=== PATIENT | female | born 1955 | race Caucasian/White ===

== ENCOUNTER 2017-06-23 15:16 | Emergency (ER) | payer MEDICARE, BC ==
[2017-06-23] MEDS ORDERED: Ketorolac Tromethamine 60 MG/2 ML VIAL ONE (18:02)
--- NOTE | 2017-06-23 20:53 | RAD ---
LEFT ANKLE THREE VIEWS: 06/23/17 HISTORY: Pain. Symptoms x2 weeks. COMPARISON: 02/02/14. FINDINGS: Healing of previously noted medial malleolus and distal fibular fracture. Currently no fractures. Ank le mortise is intact and the joint space is preserved. Nonspecific soft tissue swelling. IMPRESSION: 1. Healed fractures. 2. Nonspecific soft tissue swelling. POS: [facility]
--- NOTE | 2017-06-23 20:55 | RAD ---
LUMBAR SPINE THREE VIEWS 06/23/17 HISTORY: Back surgery 5-6 years ago. Lumbar spine pain. COMPARISON: None. FINDINGS: Grade I anterolisthesis of L4 upon L5. The lumbar spine vertebral body height is maintained. No fract ures. No significant loss of disc space height. Note, there are five lumbar type vertebral bodies. IMPRESSION: Grade I anterolisthesis of L4 upon L5. POS: [facility]
== END 2017-06-23 19:09 | disposition home or self-care (01) ==
LOC: ERS 15:16
DX: M54.42 Lumbago with sciatica, left side (principal); E78.5 Hyperlipidemia, unspecified; I10 Essential (primary) hypertension; F41.9 Anxiety disorder, unspecified; F32.9 Major depressive disorder, single episode, unspecified; Z79.891 Long term (current) use of opiate analgesic; Z79.899 Other long term (current) drug therapy
CPT/HCPCS: 72100; 96372; J1885

== ENCOUNTER 2017-08-17 11:28 | Outpatient (CLI) | payer MEDICARE, BC | END 2017-08-17 11:29 | disposition home or self-care (01) | LOC: BICMAMMO 11:28 | PROVIDERS: ATTEND Physician Assistant | DX: Z12.31 Encounter for screening mammogram for malignant neoplasm of breast (principal) | CPT/HCPCS: 77063; 77067 ==

== ENCOUNTER 2017-09-07 08:07 | Day surgery (SDC) | payer MEDICARE, BC ==
[2017-09-04 09:53] VITALS: BMI 39.9
--- NOTE | 2017-09-06 20:23 | HP ---
HISTORY OF PRESENT ILLNESS: Ms. Engle is a 62-year-old woman who presents for evaluation of 6 mon ths' worth of severe left lower extremity L4 pains as well as chronic back pain. She has an MRI on d isk from [facility] revealing foraminal disk herniation at L4 on the left hand side, which matches her symptoms well. There is also a grade 1 slip that is mild in nature at L4-L5 which is stable on f lexion and extension view. She has had an epidural steroid injection with Dr. Swann, which did yield relief, but she is more interested in fixing this definitively. PAST MEDICAL HISTORY: Significant for gallstones and prior back pain issues. CURRENT MEDICATIONS: Hydrocodone, diazepam, Lyrica, duloxetine, potassium, atorvastatin, amlodipine, lansoprazole. ALLERGIES: AZELASTINE nasal spray. PAST SURGICAL HISTORY: Cholecystectomy, hysterectomy, and an unspecified back surgery. PHYSICAL EXAMINATION: NEUROLOGIC: Patient is alert and oriented x3. Gait is antalgic. Left lower extremities straight le g raise is positive. Right is negative. Lower extremity motor exam is normal. ASSESSMENT: Lumbar disk herniation with radiculopathy. PLAN: Dr. Brown met with the patient, reviewed imaging and advocated for left L4 diskectomy and fora minotomy. He explained to the patient the risks, benefits, and alternatives of the procedure. The p atient expressed understanding and would like to move forward with surgery as discussed. I do believ e the patient is mentally competent and capable of making medical decisions for herself. We will mov e forward with surgery as planned. Ho Hernandez PA-C dictating for Dr. Brown.
[2017-09-07] MEDS ORDERED: CEFAZOLIN/Water 2 GM/20 ML SYRINGE ONE ×2 (09:05→16:24)
[2017-09-07] MEDS ORDERED: Bupivacaine HCl 0.5%/Epinephrine 1:200,000/PF 30 ml Vial ONE (11:29)
[2017-09-07] MEDS ORDERED: Midazolam HCl 2 mg/2 ml Vial ONE (11:35)
[2017-09-07] MEDS ORDERED: Fentanyl 250 MCG/5 ML VIAL ONE ×2 (11:35→13:24)
--- NOTE | 2017-09-07 13:15 | OP ---
DATE OF PROCEDURE: 09/07/2017 SURGEON: Rakesh Brown M.D. ICE CREAM SERVER: Ho Hernandez PA-C INDICATION: Pain. DIAGNOSIS: Left L4 radiculopathy. PROCEDURES: Left L4 diskectomy, left L4 foraminotomy, decompression. ANESTHESIA: General. TECHNIQUE: The patient was brought into the operating room and placed under general anesthesia. She was flipped from a supine to a prone position on the operating room table. An old linear incision w as identified and prepped and draped in the usual sterile fashion. Following an appropriate operativ e pause, the incision was created. Soft tissues were swept left of midline. A C-arm image was obtai javier to confirm the left L4 segment. After obtaining the appropriate level, high-speed cutting drill bit as well as 2, 3 and 4 mm Kerrisons used to perform a laminectomy along the remaining portion of L 4 on the left. A foraminotomy was performed of the exiting L4 nerve root. Disk and scar material we re found within the lateral recess and the foramen of L4. These were carefully removed in order to d ecompress the exiting L4 nerve root. The wound was then irrigated. Hemostasis was maintained throug hout. The wound was then closed in anatomic layers and a pressure dressing was applied. There were no known procedural complications.
[2017-09-07] MEDS ORDERED: Dexamethasone 20 MG/5 ML VIAL ONE (14:43)
[2017-09-07] MEDS ORDERED: Glycopyrrolate 0.2 MG/ML 5 ML SYRINGE ONE (14:43)
[2017-09-07] MEDS ORDERED: Propofol 200 MG/20 ML VIAL ONE (14:43)
[2017-09-07] MEDS ORDERED: Lidocaine 1% PF 5 ML VIAL ONE (14:43)
[2017-09-07] MEDS ORDERED: Naloxone HCl 0.4 mg/ml Vial ONE (14:43)
[2017-09-07] MEDS ORDERED: Ondansetron HCl/PF 4 MG/2 ML Vial ONE (14:43)
--- NOTE | 2017-09-07 20:05 | EKG ---
Test Reason : PREOP Blood Pressure : / mmHG Vent. Rate : 074 BPM Atrial Rate : 074 BPM P-R Int : 136 ms QRS Dur : 082 ms QT Int : 400 ms P-R-T Axes : 067 045 062 degrees QTc Int : 444 ms Normal sinus rhythm Normal ECG When compared with ECG of 09-JUL-2011 09:06, No significant change was found Confirmed by ALDO LEMA, DR. Butler ([id number]) on 09/07/2017 8:04:56 PM Referred By: LUDMILA Confirmed By:DR. Luke CARLSON MD
== END 2017-09-07 17:01 | disposition home or self-care (01) ==
LOC: SDC 08:07
PROVIDERS: ATTEND Neurological Surgery
PROC: 0ST20ZZ Resection of Lumbar Vertebral Disc, Open Approach (ICD-10-PCS; principal; 2017-09-07)
PROC: 01NB0ZZ Release Lumbar Nerve, Open Approach (ICD-10-PCS; 2017-09-07)
DX: M54.16 Radiculopathy, lumbar region (principal); M54.9 Dorsalgia, unspecified; G89.29 Other chronic pain; R53.82 Chronic fatigue, unspecified; F32.9 Major depressive disorder, single episode, unspecified; Z79.890 Hormone replacement therapy; Z79.899 Other long term (current) drug therapy; Z88.8 Allergy status to other drugs, medicaments and biological substances; Z98.890 Other specified postprocedural states
CPT/HCPCS: 76001; 93005; 93010; 96374; J0670; J1100; J2001; J2250; J2310; J2405; J2704; J3010

== ENCOUNTER 2017-12-09 06:23 | Day surgery (SDC) | payer MEDICARE, BC ==
[2017-12-08 10:07] VITALS: BMI 39.9
--- NOTE | 2017-12-09 04:02 | HP ---
SHORT STAY HISTORY AND PHYSICAL DATE OF ADMISSION: 12/09/2017 HISTORY OF PRESENT ILLNESS: Ms. Mitzy Engle is a very pleasant 62-year- old female seen by me a month ago at [facility]. She has also abdominal pain, nausea, and vomiting and was found to have evidence of pancreatitis. Also, her liver function is elevated. The patient has had previous open cholecystectomy many years ago. It was felt that patient most likely has common bile duct stone . The patient advised to come back for ERCP after she gets over the pancreatitis. ALLERGIES: None. SOCIAL HISTORY: The patient does not smoke or drink alcohol. MEDICAL ILLNESSES: 1. Hypertension. 2. Hyperlipidemia. 3. Depression and anxiety. 4. Cholecystectomy. PHYSICAL EXAMINATION: VITAL SIGNS: Pulse is 70, blood pressure 140/70. HEENT: Conjunctivae clear. CARDIOVASCULAR SYSTEM: First and second heart sounds normal. LUNGS: Clear to auscultation. ABDOMEN: Soft to palpate. No organomegaly. No tenderness. No masses. ADMITTING DIAGNOSIS: A 62-year-old female with gallstone pancreatitis a month ago. She had elevated LFTs at that time. She also has had a previous cholecystectomy. The patient appears to have a common bile duct stone. The patient comes for ERCP. The patient was explained about the ERCP procedure in detail, and explained about the risks about pancreatitis, bleeding , perforation, sepsis, etc. The patient understood the risks involved and is agreeable for the ERCP. HECTOR
[2017-12-09] MEDS ORDERED: Indomethacin 50 MG SUPP ONE (07:19)
[2017-12-09] MEDS ORDERED: Iothalamate Meglumine 60% 50 ML VIAL FS ONE (07:19)
[2017-12-09] MEDS ORDERED: Fentanyl 100 MCG/2 ML VIAL ONE ×2 (08:35→10:15)
[2017-12-09] MEDS ORDERED: Ondansetron HCl/PF 4 MG/2 ML Vial IVP PRN (10:15)
[2017-12-09] MEDS ORDERED: Promethazine HCl 25 MG/ML VIAL IM/IV PRN (10:15)
[2017-12-09] MEDS ORDERED: Non-Formulary Medication 1 EACH PO PRN (10:15)
[2017-12-09] MEDS ORDERED: HYDROcodone/Acetaminophen 5/325 mg Tablet ONE ×2 (11:15)
[2017-12-09] MEDS ORDERED: Ondansetron HCl/PF 4 MG/2 ML Vial ONE (11:15)
--- NOTE | 2017-12-09 11:24 | RAD ---
FLUOROSCOPIC IMAGING DURING ERCP: 12/09/2017 HISTORY: Abdominal pain. COMPARISON: None. FINDINGS: Five images are provided from an ERCP performed by Dr. Burks. The initial image demonstrates an endoscope in place. A wire extends into the CBD. The common bile duct is dilated on image 1 and benito ge 2. The distal aspect of the CBD, extending into the region of the ampulla of Vater, is not opacif ied on either one of these images and, thus, incompletely assessed. Similar findings are seen on benito ge 3. Image 4 demonstrates a balloon inflated in the distal CBD. The distal CBD is never well seen on this examination and, thus, a mass lesion, stricture, or stone in this region cannot be excluded. IMPRESSION: Common bile duct appears dilated. Distal common bile duct is never well assessed. One of the images demonstrates a balloon inflated in the distal common bile duct. POS: [facility]
--- NOTE | 2017-12-10 09:12 | OP ---
DATE OF SURGERY: 12/09/2017 OPERATIVE PROCEDURE: 1. ERCP. 2. ERCP with papillotomy. 3. ERCP with balloon sweep of the bile duct with a 9 mm biliary balloon. 4. ERCP with a 10 x 7 cm sized bile duct stent placement. PREOPERATIVE DIAGNOSES: Gallstone pancreatitis, abdominal pain. POSTOPERATIVE DIAGNOSES: 1. No definite filling defect seen. 2. Mildly dilated CBD. 3. The distal common bile duct appears to be slightly narrowed and the bile duct not emptying very w ell. PROCEDURE NOTE: The patient was intubated and was given sedation by Anesthesia Department. The ying ent was transferred from the stretcher to the fluoroscopy table. She was initially placed in left la teral position and turned on her stomach. A bite block was placed. A Artoo video duodenoscope unde r direct vision was passed down the oropharynx, past the GE junction, into the stomach, and subsequen tly the descending duodenum. The papilla was identified. I do not see any bile draining at the devin lla. A papillotome was used to cannulate the bile duct selectively over a guidewire. Upon injection of contrast, there was no definite filling defect seen. The duct was selectively dilated. The gall stone was removed. However, during fluoroscopy, the duct is really not emptying. The very distal co mmon bile duct appears to be slightly narrowed. I could not really get the contrast filled completel y. So, likely a papillotomy at 12 o'clock position. This was achieved over a guidewire after . Following the papillotomy, there was bile drainage noted; however, the duct was not emptying very w ell. Because of above reason, papillotome was changed to biliary balloon sized 9 mm. The balloon wa s brought out very easily across the papillotomy site. As the duct was not emptying very well, it wa s elected to place a bile duct stent at 10 x 7 cm into bile duct. After the bile duct stent was plac ed, a good biliary drainage noticed with the stent. The stomach was decompressed and the scope was r emoved. DISCHARGE PLANNING: A 62-year-old female with a recent gallstone pancreatitis, hospitalize d a month ago. At that time, her liver function tests were elevated. She has had previous cholecyst ectomy more than 15 years ago. She underwent ERCP with papillotomy and balloon sweep followed by a b ile duct stent placement 10 x 7 cm. The patient will be brought back in 4 weeks to remove the stent.
== END 2017-12-09 12:15 | disposition home or self-care (01) ==
LOC: SDC 06:23
PROVIDERS: ATTEND Internal Medicine Gastroenterology
PROC: 0F798DZ Dilation of Common Bile Duct with Intraluminal Device, Via Natural or Artificial Opening Endoscopic (ICD-10-PCS; principal; 2017-12-09)
DX: K83.8 Other specified diseases of biliary tract (principal); I10 Essential (primary) hypertension; E78.5 Hyperlipidemia, unspecified; F32.9 Major depressive disorder, single episode, unspecified; F41.9 Anxiety disorder, unspecified; Z90.49 Acquired absence of other specified parts of digestive tract
CPT/HCPCS: 74330; 96374; J1610; J2405; J3010; Q9961

== ENCOUNTER 2018-01-15 06:09 | Day surgery (SDC) | payer MEDICARE, BC ==
[2018-01-14 09:10] VITALS: BMI 39.9
[2018-01-15] MEDS ORDERED: Fentanyl 100 MCG/2 ML VIAL ONE (07:06)
[2018-01-15] MEDS ORDERED: Iothalamate Meglumine 60% 50 ML VIAL FS ONE (07:14)
[2018-01-15] MEDS ORDERED: Levofloxacin 500 mg/D5W 100 ml Premix Bag ONE (07:31)
--- NOTE | 2018-01-15 09:01 | HP ---
SHORT STAY HISTORY AND PHYSICAL DATE OF ADMISSION: 01/15/2018 HISTORY OF PRESENT ILLNESS: Ms. Mitzy Engle is a very pleasant 62-year-old female wit h a recent gallstone pancreatitis. The patient underwent ERCP with papillotomy and stent placement d one approximately more than a month ago. The patient has done well since the stent placement. She d id have a brief spell of post-ERCP pancreatitis. The patient comes in for ERCP with stent removal to day. ALLERGIES: None. MEDICAL ILLNESSES: 1. Hypertension. 2. Hyperlipidemia. 3. Chronic acid reflux. 4. Chronic back pain. 5. Depression and anxiety. 6. Allergic rhinitis. SOCIAL HISTORY: The patient does not smoke or drink alcohol. PHYSICAL EXAMINATION: VITAL SIGNS: Pulse is 70, blood pressure 130/80. HEENT: Conjunctivae clear. CARDIOVASCULAR SYSTEM: First and second heart sounds normal. LUNGS: Clear to auscultation. ABDOMEN: Soft to palpate. No organomegaly. No tenderness. No masses. ADMITTING DIAGNOSIS: This is a 62-year-old female with status post ERCP, papillotomy and s tent placement more than a month ago. The patient comes in for ERCP with stent removal today.
[2018-01-15] MEDS ORDERED: Ondansetron HCl/PF 4 MG/2 ML Vial ONE (09:19)
[2018-01-15] MEDS ORDERED: Promethazine HCl 25 MG/ML VIAL ONE (09:29)
--- NOTE | 2018-01-15 11:07 | RAD ---
ERCP: Date: 01-15-18 History: Gallbladder calculi. Two intraoperative fluoroscopic images from ERCP are submitted for interpretation. Comparison: 12-09-17 FINDINGS: Images demonstrate guidewire in place within the common duct. The common duct is dilated. Mild dilata tion of the visualized intrahepatic ducts. Surgical clips are seen in the right upper quadrant relate d to prior cholecystectomy. Distal common duct is not well evaluated, although on the provided images , question of filling defect in the distal common duct. However, correlation with intraoperative find ings recommended to exclude the possibility of a calculus within the common duct. No images demonstra ting free fill of contrast into the duodenum are provided. Dilatation of the common duct was also not ed on prior exam. IMPRESSION: 1. Dilated common duct. Distal common duct is not well assessed on provided images. One of the provid ed images questions filling defect in the distal common duct, and distal common duct calculus cannot be excluded based on this exam. Correlation with intraoperative findings is recommended. POS: [facility]
--- NOTE | 2018-01-15 18:09 | OP ---
DATE OF PROCEDURE: 01/15/2018 OPERATIVE PROCEDURES: 1. Endoscopic retrograde cholangiopancreatography with removal of bile duct stent. 2. Balloon sweep of the common bile duct with extraction of a large amount of debris and multiple small pigmented stones. PROCEDURE IN DETAIL: The patient was intubated and was given sedation by Anesthesia Department. The patient was transferred from the stretcher to the fluoroscopy table and placed in left lateral position and turned on the stomach. The bite block was placed and Pentax video duodenoscope under direct vision was passed down the oropharynx, past the GE junction, the stomach and subsequently into descending duodenum. The papilla was identified. The previously placed bile duct stent removed with polypectomy snare. The scope and stent removed. The patient rescoped again and advanced back into the descending duodenum. The papilla was cannulated into the pancreatic duct and injection shows normal pancreatic duct. Subsequently, the CBD selectively cannulated: This was achieved with a guidewire. Upon injection of contrast, there were no definite filling defects seen, but does show dilation of the common bile duct. Once the cannula was achieved, the patient started passing a small amount of debris and multiple tiny pigmented stone. The papillotome was exchanged to a biliary balloon. The balloon was inflated and an occlusion cholangiogram was performed. There is no filling defect seen. The balloon was brought across the papilla x2 with emptying of common bile duct. The stomach was decompressed and scoped. DISCHARGE PLANNING: This is a 62-year-old female with recent pancreatitis, underwent ERCP and stent placement done about 5 weeks ago. The patient came in for stent removal. She underwent a dual stent and also had a cholangiogram. The cholangiogram shows no filling defect, but however, upon cannulation, the patient started passing_ moderate amount of debris and multiple small pigmented stones. Occlusion cholangiogram showed no filling defects. The patient did well post procedure and is being discharged home. DISCHARGE INSTRUCTIONS: 1. The patient was advised to call me for abdominal pain, nausea, vomiting. 2. In the absence of any of her symptoms, will come back to me next week. [facility]
== END 2018-01-15 10:58 | disposition home or self-care (01) ==
LOC: SDC 06:09
PROVIDERS: ATTEND Internal Medicine Gastroenterology
PROC: 0FPB8DZ Removal of Intraluminal Device from Hepatobiliary Duct, Via Natural or Artificial Opening Endoscopic (ICD-10-PCS; principal; 2018-01-15)
PROC: 0FC98ZZ Extirpation of Matter from Common Bile Duct, Via Natural or Artificial Opening Endoscopic (ICD-10-PCS; 2018-01-15)
DX: K80.50 Calculus of bile duct without cholangitis or cholecystitis without obstruction (principal); E78.5 Hyperlipidemia, unspecified; G89.29 Other chronic pain; M54.9 Dorsalgia, unspecified; F41.8 Other specified anxiety disorders; K21.9 Gastro-esophageal reflux disease without esophagitis; I10 Essential (primary) hypertension; Z98.890 Other specified postprocedural states; Z79.899 Other long term (current) drug therapy
CPT/HCPCS: 74330; 96374; J1956; J2405; J2550; J3010; Q9961

== ENCOUNTER 2018-01-15 16:21 | Inpatient (IN) | payer MEDICARE, BC ==
[~2018-01-15 16:21] MED LIST: ISOVUE-370 76%-LOCM 1 ML ONE
[2018-01-15 17:37] LABS: Hemoglobin 14.3 g/dL (12.0-16.0); Mean Corpuscular HGB CONC 33.5 g/dL (32.0-36.0); Mean Corpuscular Hemoglobin 27.6 pg (27.0-31.0); Mean Corpuscular Volume 82.4 fL (78.0-98.0); Mean Platelet Volume 12.4 fL (7.4-10.4); Platelet Count 104 thou/uL (130-400); RBC Distribution Width 13.5 % (11.5-14.5); Red Blood Cell (RBC) Count 5.17 mill/uL (4.20-5.40); White Blood Cell (WBC) Count 11.5 thou/uL (4.8-10.8)
[2018-01-15 17:43] LABS: Band 11 % (5-11); Large Platelets SLIGHT; Lymphocytes 8 % (21-51); MDiff Complete? YES; Monocytes 4 % (0-10); Neutrophil 75 % (42-75); PLT Morphology Comment Appears Decreased; RBC Morphology Normal; Reactive Lymphocytes 1 % (0-10); Vacuoles SLIGHT
[2018-01-15 17:48] LABS: ALT (SGPT) 19 U/L (8-55); AST (SGOT) 31 U/L (5-34); Albumin 4.2 g/dL (3.4-4.8); Alkaline Phosphatase 141 U/L (40-150); Anion Gap 16 mmol/L (10-20); BUN (Urea Nitrogen) 15 mg/dL (9.8-20.1); Bilirubin, Total 0.7 mg/dL (0.2-1.2); Calc. Creatinine Clearance 0 mL/min (70-130); Calcium 9.3 mg/dL (7.8-10.44); Carbon Dioxide 22 mmol/L (23-31); Chloride 106 mmol/L (98-107); Estimated GFR-MDRD 55; Globulin 2.9 g/dL (2.4-3.5); Glucose 128 mg/dL (80-115); Potassium 4.2 mmol/L (3.5-5.1); Protein, Total 7.1 g/dL (6.0-8.3); Sodium 140 mmol/L (136-145)
[2018-01-15] MEDS ORDERED: Ondansetron HCl/PF 4 MG/2 ML Vial ONE (20:58)
[2018-01-15] MEDS ORDERED: Acetaminophen 500 MG TAB ONE (21:07)
--- NOTE | 2018-01-15 22:34 | CT ---
CT OF ABDOMEN AND PELVIS PERFORMED WITH CONTRAST ENHANCEMENT: 01/15/18 HISTORY: Patient is status post bile duct stent removal. A stent the patient reports she had for six weeks. James nuñez has had abdominal pain. COMPARISON: ERCP examination done today. Lung bases show subsegmental atelectasis. There is a moderate sized hiatal hernia present. The liver and spleen appear unremarkable. The gallbladder has been removed. There is peripancreatic inflammator y change and small amount of fluid more pronounced around the pancreatic head region. There is also s ome edema change near the second to third portion of the duodenum. Extrahepatic bile ducts show some wall enhancement. I do not see a definite ductal calculus. There is no intrahepatic ductal dilation. Right and left adrenal glands are normal in appearance. Right and left kidneys are normal in size. Hy podensities involving the left kidney are compatible with cysts. There is no significant periaortic or mesenteric adenopathy. CT OF PELVIS PERFORMED WITH CONTRAST ENHANCEMENT: The appendix is normal. No adenopathy, mass or free fluid. IMPRESSION: 1. Peripancreatic inflammatory change compatible with pancreatitis. 2. Postop cholecystectomy change. 3. Hiatal hernia. POS: [facility]
[2018-01-16] MEDS ORDERED: Fentanyl 100 MCG/2 ML VIAL ONE (00:16)
[2018-01-16] MEDS ORDERED: HYDROcodone/Acetaminophen 5/325 mg Tablet ONE (02:27)
[2018-01-16] MEDS ORDERED: Acetaminophen 325 MG TAB PO PRN (03:41)
[2018-01-16] MEDS ORDERED: Mag-Al 1200 mg/1200 mg/30 ML UDCUP PO PRN (03:41)
[2018-01-16] MEDS ORDERED: Calcium Carbonate 500 MG ChewTAB PO PRN (03:41)
[2018-01-16] MEDS ORDERED: hydrALAZINE 20 MG/ML VIAL SLOW IVP PRN (03:41)
[2018-01-16] MEDS ORDERED: Nitroglycerin 0.4 MG TAB (25 Tab Bottle) SL PRN (03:41)
[2018-01-16] MEDS ORDERED: Ondansetron HCl/PF 4 MG/2 ML Vial IVP PRN ×2 (03:41→03:49)
[2018-01-16] MEDS ORDERED: HYDROcodone/Acetaminophen 5/325 mg Tablet PO PRN ×2 (03:49)
[2018-01-16] MEDS ORDERED: Ondansetron ODT 4 MG TAB SL PRN (03:49)
[2018-01-16] MEDS ORDERED: Sodium Chloride 0.45% 1,000 ML IV SCH (03:49)
[2018-01-16] MEDS ORDERED: Fentanyl 100 MCG/2 ML VIAL SLOW IVP PRN ×2 (03:51→17:30)
[2018-01-16 04:10] VITALS: BMI 39.8
[2018-01-16] MEDS: Sodium Chloride 0.9% 1,000 ML IV SCH ×5 (04:33→22:08)
--- NOTE | 2018-01-16 05:06 | HP ---
DATE OF ADMISSION: 01/16/2018 PRIMARY CARE PHYSICIAN: Amber Hoover. CHIEF COMPLAINT: Abdominal pain, vomiting, and loose stools. HISTORY OF PRESENT ILLNESS: Ms. Engle is a pleasant 62-year-old female with recent diagnosis of g allstone pancreatitis, who presented to the ER with above-mentioned complaint. History is mainly obt ained with the patient herself and case has been discussed with the admitting ER physician, Dr. Mirta howard. Electronic medical records have been reviewed. The patient had an episode of pancreatitis in 11/2017, at which time she was seen at [facility]. She was seen by Gastroenterology, Dr. Burks and underwent an ERCP as an outpatie nt with stent placement on 12/09/2017. She was discharged afterwards, but was readmitted about a wee k later back to [facility] with recurrent attack of pancreatitis, likely post-ERC P pancreatitis. She was admitted for about 3-4 days and was discharged and has been doing fairly wel l. She was seen by Dr. Burks in the outpatient setting for stent removal yesterday and got the s tent removed on 01/15/2018. After the stent removal, she went home and ate some jello and some sodas and shortly afterwards started to have significant bouts of vomiting, abdominal pain and 1-[address] ools. She called Dr. Burks's office and presented back to the emergency room. In the ER, her li pase was found to be elevated to 14,790. No baseline available in our system. A CT scan of the abdo men and pelvis was done, which was consistent with pancreatitis. She is otherwise hemodynamically st able and is now being admitted to the hospital for acute post-ERCP pancreatitis. PAST MEDICAL HISTORY: Dyslipidemia, hypertension, history of some internal bleeding in 1989, skin ma lignancy. PAST SURGICAL HISTORY: 1. Cholecystectomy in 1993. 2. Hysterectomy in 1991. 3. Tonsillectomy. 4. Back surgery. PSYCHIATRIC HISTORY: Anxiety and depression, requiring inpatient psychiatric admission in 2013 in [facility]. SOCIAL HISTORY: No history of drug, tobacco or alcohol abuse. Currently, lives at home with her hus band. FAMILY HISTORY: No significant family history of premature coronary artery disease or stroke. ALLERGIES: No known medication allergies. CURRENT MEDICATIONS: Diazepam 2 times daily, [place] as needed, Lyrica 50 mg daily, duloxetine 60 mg d aily, potassium chloride 10 mEq daily, amlodipine/benazepril 5/20 mg daily, lansoprazole 30 mg daily, atorvastatin 20 mg daily, naproxen as needed b.i.d. REVIEW OF SYSTEMS: The following complete review of systems was negative, unless otherwise mentioned in the HPI or below: Constitutional: Weight loss or gain, ability to conduct usual activities. Sk in: Rash, itching. Eyes: Double vision, pain. ENT/Mouth: Nose bleeding, neck stiffness, pain, te nderness. Cardiovascular: Palpitations, dyspnea on exertion, orthopnea. Respiratory: Shortness of breath, wheezing, cough, hemoptysis, fever or night sweats. Gastrointestinal: Poor appetite, abdom inal pain, heartburn, nausea, vomiting, constipation, or diarrhea. Genitourinary: Urgency, frequenc y, dysuria, nocturia. Musculoskeletal: Pain, swelling. Neurologic/Psychiatric: Anxiety, depressio n. Allergy/Immunologic: Skin rash, bleeding tendency. A 12-point review of systems is done. It is negative except for those mentioned in the history and physical. LABORATORY DATA AND IMAGING: CBC shows WBCs at 11.5, platelet count of 104, no left shift, no bandem ia. Serum chemistries unremarkable except for lipase of over 14,000. Magnesium is normal at 2. CT scan of the abdomen and pelvis is consistent with pancreatitis with peripancreatic inflammatory shelby es and post-cholecystectomy changes. No significant periaortic or mesenteric adenopathy. PHYSICAL EXAMINATION: VITAL SIGNS: Upon presentation, blood pressure 142/74, pulse of 112, respirations 20, saturating 95% on room air, temperature 100.3. GENERAL: The patient is lying comfortably in bed and trying to be nonmobile because of the abdominal pain. She is holding her abdomen, but otherwise in no acute distress. Awake, alert, oriented x3. She does appear somewhat slow and answer. HEENT: Mucous membranes slightly dry. No oropharyngeal exudate or erythema. Head is normocephalic, atraumatic. Pupils are equal, reactive to light and accommodation. Extraocular movement intact. NECK: Supple without any lymphadenopathy, JVD or bruit. CHEST: Clear to auscultation without any wheezing, rales, rhonchi. CARDIOVASCULAR: Rate and rhythm is regular without any murmur, rubs or gallops. ABDOMEN: Tender to palpation even with mild touch diffusely. It is soft. No rebound or guarding or rigidity. Positive bowel sounds heard. EXTREMITIES: Free of any cyanosis, clubbing, or edema. NEUROLOGIC: Nonfocal. SKIN: Free of any rashes or bruises. I feel warm and dry to touch. PSYCHIATRIC: Flat affect. IMPRESSION AND PLAN: 1. Acute post-ERCP pancreatitis. The patient had removal of the stent and the operative report says that there was a lot of debris encountered. At this time, she will be treated with generous IV flui ds and n.p.o. status and pain medications. We will request consultation with Gastroenterology in the morning. Dr. Colin has already been contacted by the emergency room physician. We will recheck am ylase, lipase, and lipid panel in the morning. Check magnesium and phosphorus as well. Check liver enzymes as well. Currently, her liver enzymes are unremarkable. 2. Systemic inflammatory response syndrome criteria. The patient had mild leukocytosis and low grad e fever upon presentation. We will obtain urinalysis as well as stool studies as the patient was rec ently treated with IV antibiotics in the [facility] to rule out Clostridium difficile as well. Most likely this is secondary to acute pancreatitis. 3. Hypertension, currently well controlled. Reconcile her home medication until then we will add p. r.n. antihypertensives as the patient is n.p.o. 4. History of psychiatric illness. Currently, appears to be euthymic. 5. Dyslipidemia. Check lipid panel and restart home medications once able to take oral. 6. Add deep venous thrombosis and gastrointestinal prophylaxis. 7. Code status: FULL CODE. Discussed with the patient. DISPOSITION: Ms. Engle is currently being admitted to the hospital for acute pancreatitis. Estim ated length of stay at least is 2-3 midnight. Further management will depend upon her clinical cours e.
[2018-01-16 05:41] LABS: Anion Gap 9 mmol/L (10-20); BUN (Urea Nitrogen) 15 mg/dL (9.8-20.1); Calc. Creatinine Clearance 99 mL/min (70-130); Calcium 8.3 mg/dL (7.8-10.44); Carbon Dioxide 28 mmol/L (23-31); Chloride 107 mmol/L (98-107); Estimated GFR-MDRD 56; Glucose 102 mg/dL (80-115); Magnesium 1.7 mg/dL (1.6-2.6); Phosphorus 4.1 mg/dL (2.3-4.7); Potassium 3.9 mmol/L (3.5-5.1); Sodium 140 mmol/L (136-145)
[2018-01-16 05:57] LABS: Lipase 5841 U/L (8-78)
[2018-01-16 09:03] LABS: Bilirubin Negative (Negative); Blood, Urine Trace (Negative); Clarity CLEAR (Clear); Glucose, Urine (Dipstick) Negative (Negative); Leukocyte Negative (Negative); Nitrite Negative (Negative); Protein, Urine (Dipstick) Negative (Neg-Trace); Specific Gravity, Urine 1.023 (1.002-1.036); pH, Urine 5.5 (5.0-9.0)
[2018-01-16 09:06] LABS: Bacteria/HPF None Seen HPF (None Seen); Hyaline Casts/LPF 0-3 HYALINE CAST LPF (0-3 Hyaline); Pathc Cast-AUWi Flag 0.29 (0-2.49); WBC/HPF 0-3 HPF (0-3)
[2018-01-16] MEDS ORDERED: Sodium Chloride 0.9% 1,000 ML IV SCH (13:00)
[2018-01-16] MEDS: Enoxaparin Sodium 30 MG/0.3 ML SYRINGE SC SCH (13:28)
--- NOTE | 2018-01-16 17:25 | PDOC.PN ---
- Subjective Encounter Start Date: 01/16/18 Encounter Start Time: 17:23 moira Engle was seen today in follow-up of acute pancreatitis. She is still having quite a bit of pain. She denies feeling short of breath. She denies nausea. - Objective MAR Reviewed: Yes Vital Signs & Weight: Vital Signs (12 hours) Temp Pulse Resp BP Pulse Ox 01/16/18 16:03 97.8 F 71 16 133/62 96 01/16/18 08:00 97.7 F 70 16 91/45 L 95 Weight Weight 239 lb 5.341 oz Result Diagrams: 01/15/18 17:12 01/16/18 05:19 Phys Exam - Physical Examination HEENT: PERRLA Respiratory: no wheezing, no rales, no rhonchi, clear to auscultation bilateral Cardiovascular: RRR, no significant murmur, no rub Gastrointestinal: soft, positive bowel sounds + exquisite tenderness in the abdomen Musculoskeletal: no edema Neurological: non-focal Dx/Plan (1) Acute pancreatitis Code(s): K85.90 - ACUTE PANCREATITIS WITHOUT NECROSIS OR INFECTION, UNSP Status: Acute (2) Choledocholithiasis Code(s): K80.50 - CALCULUS OF BILE DUCT W/O CHOLANGITIS OR CHOLECYST W/O OBST Status: Acute (3) Hypertension Code(s): I10 - ESSENTIAL (PRIMARY) HYPERTENSION Status: Acute - Plan * Pancreatitis - continue bowel rest, and IV fluid resuscitation * Continue anti-emetics, and analgesic * Await further recommendations from GI * HTN- blood pressure is controlled- will continue PRN medications
[2018-01-16] MEDS: Fentanyl 100 MCG/2 ML VIAL SLOW IVP PRN ×2 (18:03→22:03)
[2018-01-16] MEDS: Lorazepam 2 MG/ML VIAL SLOW IVP PRN (22:07)
[2018-01-17] MEDS: Sodium Chloride 0.9% 1,000 ML IV SCH ×6 (01:07→22:46)
[2018-01-17] MEDS: Fentanyl 100 MCG/2 ML VIAL SLOW IVP PRN ×6 (01:49→22:24)
[2018-01-17] MEDS: Lorazepam 2 MG/ML VIAL SLOW IVP PRN ×3 (01:55→18:25)
[2018-01-17 07:24] LABS: #Eosinphils 0.1 thou/uL (0.0-0.7); #Monocytes 0.5 thou/uL (0.11-0.59); #Neutrophils 3.6 thou/uL (1.40-6.50); %Basophils 0.5 % (0.0-1.0); %Eosinophils 1.6 % (0.0-10.0); %Lymphocytes 31.6 % (21.0-51.0); %Neutrophils 58.3 % (42.0-75.0); Hemoglobin 11.4 g/dL (12.0-16.0); Mean Corpuscular HGB CONC 34.6 g/dL (32.0-36.0); Mean Corpuscular Hemoglobin 28.8 pg (27.0-31.0); Mean Corpuscular Volume 83.2 fL (78.0-98.0); Mean Platelet Volume 11.9 fL (7.4-10.4); Platelet Count 70 thou/uL (130-400); RBC Distribution Width 13.1 % (11.5-14.5); Red Blood Cell (RBC) Count 3.94 mill/uL (4.20-5.40); White Blood Cell (WBC) Count 6.2 thou/uL (4.8-10.8)
[2018-01-17 07:34] LABS: Cardiac Risk 3.7 (Less than 4.5)
[2018-01-17 07:48] LABS: ALT (SGPT) 12 U/L (8-55); AST (SGOT) 14 U/L (5-34); Albumin 3.3 g/dL (3.4-4.8); Alkaline Phosphatase 102 U/L (40-150); Anion Gap 13 mmol/L (10-20); BUN (Urea Nitrogen) 6 mg/dL (9.8-20.1); Bilirubin, Direct 0.3 mg/dL (0.1-0.3); Bilirubin, Total 0.8 mg/dL (0.2-1.2); Calc. Creatinine Clearance 123 mL/min (70-130); Calcium 8.5 mg/dL (7.8-10.44); Carbon Dioxide 24 mmol/L (23-31); Chloride 107 mmol/L (98-107); Estimated GFR-MDRD 72; Globulin 2.4 g/dL (2.4-3.5); Glucose 80 mg/dL (80-115); Lipase 571 U/L (8-78); Magnesium 1.7 mg/dL (1.6-2.6); Phosphorus 3.4 mg/dL (2.3-4.7); Protein, Total 5.7 g/dL (6.0-8.3); Sodium 140 mmol/L (136-145)
[2018-01-17] MEDS: Enoxaparin Sodium 30 MG/0.3 ML SYRINGE SC SCH (08:56)
--- NOTE | 2018-01-17 13:23 | PDOC.PN ---
- Subjective Encounter Start Date: 01/17/18 Encounter Start Time: 13:20 Ms. Engle was seen today in follow-up. She is still having pain, but admits it is a bit better today. - Objective MAR Reviewed: Yes Vital Signs & Weight: Vital Signs (12 hours) Temp Pulse Resp BP Pulse Ox 01/17/18 08:00 98.1 F 90 18 126/58 L 97 01/17/18 04:00 99.0 F 88 16 130/62 96 Weight Weight 239 lb 5.341 oz I&O: 01/16/18 01/17/18 01/18/18 06:59 06:59 06:59 Intake Total 4610 Output Total 3600 1100 Balance 1010 -1100 Result Diagrams: 01/17/18 06:38 01/17/18 06:38 Phys Exam - Physical Examination HEENT: PERRLA Respiratory: no wheezing, no rales, no rhonchi, clear to auscultation bilateral Cardiovascular: RRR, no significant murmur, no rub Gastrointestinal: soft, positive bowel sounds + diffuse tenderness no rebound or guarding Musculoskeletal: no edema Dx/Plan (1) Acute pancreatitis Code(s): K85.90 - ACUTE PANCREATITIS WITHOUT NECROSIS OR INFECTION, UNSP Status: Acute (2) Choledocholithiasis Code(s): K80.50 - CALCULUS OF BILE DUCT W/O CHOLANGITIS OR CHOLECYST W/O OBST Status: Acute (3) Hypertension Code(s): I10 - ESSENTIAL (PRIMARY) HYPERTENSION Status: Acute - Plan * Acute Pancreatitis- following ERCP- continue bowel rest and IV fluids, and analgesics * Continue to monitor electrolytes * HTN- blood pressure is stable * Continue as per GI recommendations.
[2018-01-17] MEDS ORDERED: Melatonin 3 MG TAB PO SCH (20:15)
[2018-01-17] MEDS ORDERED: Loperamide HCl 2 MG CAP PO SCH (21:09)
[2018-01-18] MEDS: Lorazepam 2 MG/ML VIAL SLOW IVP PRN ×2 (01:36→11:21)
--- NOTE | 2018-01-18 04:33 | PRG ---
DATE OF SERVICE: 01/17/2018 SUBJECTIVE: Ms. Engle is feeling better, still taking some pain medicine at times. She is voidin g quite frequently about every 30 minutes. She is no longer nauseated, but still using some pain med icines. She feels like she is about 70% improved from yesterday. OBJECTIVE: VITAL SIGNS: Temperature is 98.1, T-max is 100 at 1:00 a.m. this morning, pulse is 90, respirations 18, blood pressure 126/58. yesterday 4610 and 3600, positive 1 liter. She has had about 1000 mL of urine so far today. GENERAL: She is sitting up in a chair. She has some ice chips. She is in no distress. HEENT: Oropharynx is moist. NECK: Supple. LUNGS: Clear. HEART: Regular rate and rhythm. ABDOMEN: Still mildly tender in the epigastrium with voluntary guarding, but there is no rebound. LABORATORY STUDIES: White count is down to 6.2 from 11.5, hemoglobin is 11.4, platelet count 70,000. BUN and creatinine are 6 and 0.8. Sodium is 140, potassium is 4, chloride 107, bicarbonate 24, ani on gap 9. AST and ALT are 14 and 12, amylase is 523. Lipase is 571. ASSESSMENT AND PLAN: Post-endoscopic retrograde cholangiopancreatography pancreatitis. Seemingly, s he had some stones in her bile duct. A stent was removed. She was in quite a bit of pain yesterday. She has responded well to IV fluids and pain control and antinausea medicine. She is feeling much better. She is still having significant epigastric discomfort that she is taking pain medicines. We will go ahead and let her stay on her ice chips, but hold off on any liquids until tomorrow. We sara l decrease her IV fluids to [address] Burks will return to resume her GI care tomorrow .
[2018-01-18] MEDS: Sodium Chloride 0.9% 1,000 ML IV SCH ×4 (04:52→23:53)
--- NOTE | 2018-01-18 05:17 | PRG ---
DATE OF SERVICE: 01/17/2018 SUBJECTIVE: This is a 62-year-old female who underwent ERCP with history of common bile du ct with some stone extraction. The patient did go home subsequently. She called on the evening of 0 12/16/2017 abdominal pain, nausea, vomiting, and diarrhea. She was advised to come to the ER. After , she came to the ER and was found to have evidence of acute pancreatitis. Lipase was 14,000, amylas e was more than 2000. Liver function tests are not elevated. She is on IV pain medications and also on IV Levaquin from yesterday. Her pain intensity is less. She had no back pain. There is no naus ea, no vomiting. She complains of multiple loose stools today. She says she has a stool today. She is started on pain medication. PHYSICAL EXAMINATION: GENERAL: Appears comfortable, in no distress. VITAL SIGNS: Stable. Afebrile, pulse 82, blood pressure 130/62. CARDIOVASCULAR: First and second heart sounds normal. LUNGS: Within normal limits. ABDOMEN: Soft. Abdomen is minimally tender over the epigastric area. She has active bowel sounds. There is no rebound or guarding. The lab data shows WBC dropping to 6, hemoglobin 11.4, hematocrit 32.8, no bandemia. Her platelet count has come down to 70,000 from 101 yesterday, etiology unclear. Her lipase is down to 571, amylase is down to 523. Liver function tests normal. Chem-7 is normal. Potassium 4. IMPRESSION: 1. Diarrhea, etiology unclear. 2. Acute pancreatitis most likely post-ERCP. RECOMMENDATION: 1. Imodium 2 mg once a day as needed. 2. Obtain stool studies. Hopefully, come back to normal tomorrow and if they come back normal , may consider clear liquid diet tomorrow.
[2018-01-18 06:06] LABS: #Eosinphils 0.1 thou/uL (0.0-0.7); #Lymphocytes 1.6 thou/uL (1.20-3.40); #Monocytes 0.5 thou/uL (0.11-0.59); #Neutrophils 2.8 thou/uL (1.40-6.50); %Basophils 0.8 % (0.0-1.0); %Eosinophils 2.3 % (0.0-10.0); %Lymphocytes 31.3 % (21.0-51.0); %Monocytes 9.1 % (0.0-10.0); %Neutrophils 56.5 % (42.0-75.0); Hemoglobin 11.3 g/dL (12.0-16.0); Mean Corpuscular HGB CONC 34.6 g/dL (32.0-36.0); Mean Corpuscular Hemoglobin 28.6 pg (27.0-31.0); Mean Corpuscular Volume 82.5 fL (78.0-98.0); Mean Platelet Volume 11.9 fL (7.4-10.4); Platelet Count 80 thou/uL (130-400); Red Blood Cell (RBC) Count 3.95 mill/uL (4.20-5.40)
[2018-01-18 06:21] LABS: ALT (SGPT) 8 U/L (8-55); AST (SGOT) 12 U/L (5-34); Albumin 3.3 g/dL (3.4-4.8); Alkaline Phosphatase 104 U/L (40-150); Anion Gap 13 mmol/L (10-20); BUN (Urea Nitrogen) 6 mg/dL (9.8-20.1); Bilirubin, Total 0.6 mg/dL (0.2-1.2); Calc. Creatinine Clearance 135 mL/min (70-130); Calcium 8.7 mg/dL (7.8-10.44); Carbon Dioxide 21 mmol/L (23-31); Chloride 109 mmol/L (98-107); Estimated GFR-MDRD 81; Globulin 2.4 g/dL (2.4-3.5); Glucose 80 mg/dL (80-115); Lipase 141 U/L (8-78); Potassium 3.5 mmol/L (3.5-5.1); Protein, Total 5.7 g/dL (6.0-8.3); Sodium 139 mmol/L (136-145)
--- NOTE | 2018-01-18 08:03 | CON ---
DATE OF CONSULTATION: 01/16/2018 GI CONSULTATION REASON FOR CONSULTATION: Post-ERCP pancreatitis. HISTORY OF PRESENT ILLNESS: Ms. Engle is a 62-year-old female patient who has been seeing Dr. Edwige christensen. She had an episode of biliary pancreatitis at the [facility] back in the spring of this year. She recovered, it was felt that she had probably biliary pancreatitis, she had a remote history of cholecystectomy and had elevated liver enzymes that time. Those labs are not av ailable to me. She underwent an ERCP on 12/09/[address] Burks and he did sphi ncterotomy and balloon swept the duct with a little bit of debris, but the distal duct seemed normal and there was not good drainage, so 10 [place] 7 cm stent was placed. Ultimately, she had been doing well and came in to have the stent removed yesterday. Yesterday, That ERCP surprisingly has some pig ment stones and debris was found in the distal duct. These were swept away and the stent was remove d. After her previous ERCP, she had had a mild bout of pancreatitis per his reports. Last night, un fortunately she began to have abdominal pain and returned to the emergency room. Here, she had a whi te count of 11.5, hemoglobin 14, platelet count of 104, normal comp metabolic profile except for gluc ose of 128 and lipase of 14,790. She was started on IV fluids and bolused about 3 liters and is on 2 00 an hour normal saline. Dr. Burks did call in for her some Levaquin today. She is still havin g epigastric pain and feels a little better. She is not vomiting. She is not having diarrhea, she h as had previous bouts. Her lipase has come down to 5841. CAT scan was performed in the emergency ro om last night and revealed peripancreatic inflammatory change consistent with pancreatitis, previous cholecystectomy and hiatal hernia. There are some edema changes near the duodenum. Extrahepatic bi le duct showed some wall enhancement. No stones. There is no free fluid in the abdomen. PAST MEDICAL HISTORY: Dyslipidemia, hypertension, skin malignancy, biliary pancreatitis, previous po st-ERCP pancreatitis. PAST SURGICAL HISTORY: Cholecystectomy 1993, hysterectomy 1991, tonsillectomy, back surgery, ERCP x2 as noted in HPI. PSYCHIATRIC HISTORY: Includes anxiety, depression, previous admission in 2013 to [facility]. SOCIAL HISTORY: Negative for drugs, alcohol, or tobacco abuse. She lives at home with her . FAMILY HISTORY: Coronary artery disease. No history of pancreatic disease. ALLERGIES: None known. MEDICATIONS: Diazepam, [place] p.r.n., Lyrica, duloxetine, potassium chloride, amlodipine/benazepril, lansoprazole, atorvastatin, Naprosyn p.r.n. REVIEW OF SYSTEMS: She is urinating. Urine is light. She has had no nausea, vomiting, no melena, h ematochezia, hematemesis. Denies fever or chills. She denies any recent weight loss. Denies any ch est pain, shortness of breath, dyspnea on exertion. She is not having any coughing. LABORATORY DATA AND IMAGING: As noted above. PRESENT MEDICATIONS: Here in the hospital, normal saline 250 mL an hour, Zofran, p.r.n., morph ine p.r.n. Ativan p.r.n., levofloxacin, fentanyl, calcium. PHYSICAL EXAMINATION: VITAL SIGNS: Temperature is 97.7, pulse 70, blood pressure is 132/61 and 91/45. HEENT: She is in mild distress at rest. She seems to be breathing well. She can take deep breaths without difficulty. Oropharynx is without lesions. NECK: Supple without adenopathy. LUNGS: Clear. HEART: Regular rate and rhythm without clicks or murmurs. ABDOMEN: Slightly tender in the epigastrium as it is protuberant. It is not tight. There are no veronica wel sounds. There is no rebound or guarding. LABORATORY STUDIES: As above. ASSESSMENT: Post-ERCP pancreatitis. This likely was biliary as she did have stones in her bile duct at this admission. Initially, she is here for pancreatitis with previous ERCP as well as a little b it more mild. She is being adequately resuscitated. Her labs look good. Her BUN and creatinine hav e actually come down since admission and her lipase has come down. RECOMMENDATIONS: 1. DVT prophylaxis. 2. Continue IV fluid resuscitation. After next liter of fluid, we will drop her down to 125 mL an h our. 3. Repeat labs in the morning. 4. Pain control. 5. Ulcer prophylaxis.
[2018-01-18] MEDS: Enoxaparin Sodium 30 MG/0.3 ML SYRINGE SC SCH (09:22)
[2018-01-18] MEDS: Fentanyl 100 MCG/2 ML VIAL SLOW IVP PRN (11:19)
[2018-01-18] MEDS ORDERED: DULoxetine 60 MG CAP PO SCH (13:00)
[2018-01-18] MEDS ORDERED: Loperamide HCl 2 MG CAP PO SCH (20:15)
--- NOTE | 2018-01-18 20:24 | PDOC.PN ---
- Subjective Encounter Start Date: 01/18/18 Encounter Start Time: 20:22 Ms. Engle was seen today in follow-up. She is feeling better, and has less abdominal pain. - Objective MAR Reviewed: Yes Vital Signs & Weight: Vital Signs (12 hours) Temp Pulse Resp BP Pulse Ox 01/18/18 19:56 98.9 F 82 18 138/66 93 L Weight Weight 239 lb 5.341 oz I&O: 01/17/18 01/18/18 01/19/18 06:59 06:59 06:59 Intake Total 4610 2490 2400 Output Total 3600 2900 2100 Balance 1010 -410 300 Result Diagrams: 01/18/18 05:45 01/18/18 05:45 Phys Exam - Physical Examination HEENT: PERRLA Respiratory: no wheezing, no rales, no rhonchi Cardiovascular: RRR, no significant murmur, no rub Gastrointestinal: soft, positive bowel sounds + diffuse tenderness no rebound or guarding Musculoskeletal: no edema Dx/Plan (1) Acute pancreatitis Code(s): K85.90 - ACUTE PANCREATITIS WITHOUT NECROSIS OR INFECTION, UNSP Status: Acute (2) Choledocholithiasis Code(s): K80.50 - CALCULUS OF BILE DUCT W/O CHOLANGITIS OR CHOLECYST W/O OBST Status: Acute (3) Hypertension Code(s): I10 - ESSENTIAL (PRIMARY) HYPERTENSION Status: Chronic (4) Depression Code(s): F32.9 - MAJOR DEPRESSIVE DISORDER, SINGLE EPISODE, UNSPECIFIED Status : Chronic - Plan * Acute Pancreatits- Lipase has improved, and symptomatically she is improved- her diet has been advanced to clear liquid * HTN- blood pressure is stable * Depression- will re-start her home medications * Hopefully home soon..
[2018-01-18] MEDS: Diazepam 5 MG TAB PO SCH (21:13)
[2018-01-18] MEDS: Atorvastatin Calcium 20 MG TAB PO SCH (21:13)
[2018-01-18] MEDS: Melatonin 3 MG TAB PO PRN (23:13)
--- NOTE | 2018-01-19 00:46 | PRG ---
DATE OF SERVICE: 01/18/2018 HISTORY OF PRESENT ILLNESS: This is a 62-year-old female with recurrent pancreatitis. For the most recent pancreatitis, ERCP induced. The patient's ERCP was on 01/15/2018, she under went balloon sweep of bile duct. She had some . The patient went home and came back to the ER with abdominal pain, nausea, and vomiting. She was found to have acute pancreatitis. Her white bloo d cells was more than 14,000. Liver function tests are actually normal. The lipase levels all are c oming down to 5000 and again yesterday to 571. Today, it is down to 141. She is actually feeling a whole lot better. She had no nausea. Her abdomen pain is markedly lessened. She has multiple loose stools yesterday and is on Imodium A-D yesterday. Her diarrhea is better today. PHYSICAL EXAMINATION: GENERAL: Appears comfortable. VITAL SIGNS: Stable. Afebrile, pulse is 76, blood pressure 140/69. HEENT: Conjunctivae clear. CARDIOVASCULAR: First and second heart sounds normal. LUNGS: Clear to auscultation. ABDOMEN: Soft to palpate. Abdomen is nondistended. Abdomen is mildly tender over the epigastric ar ea. There is no rebound or guarding. Bowel sounds are active. LABORATORY DATA: WBC 5000, hemoglobin 11.3, hematocrit 32.6, MCV 18.5, platelet count 80,000. Chemi stry panel: Sodium is 139, potassium 3.5, chloride 109, bicarbonate 21, creatinine 0.73, glucose is 80, calcium 8.7. LFTs are normal. Lipase came down to 141. CLINICAL IMPRESSION: Acute pancreatitis, improving. RECOMMENDATIONS: 1. Discontinue n.p.o. 2. Clear liquid diet. 3. If she has no rectal, abdominal pain, nausea, vomiting, consider advancing diet if possible to fu ll liquid diet tomorrow.
[2018-01-19] MEDS: Fentanyl 100 MCG/2 ML VIAL SLOW IVP PRN (01:41)
[2018-01-19] MEDS: Sodium Chloride 0.9% 1,000 ML IV SCH ×3 (05:47→19:14)
[2018-01-19] MEDS: Amlodipine 5 mg/Benazepril 20 mg CAP PO SCH (08:44)
[2018-01-19] MEDS: Pregabalin 50 MG CAP PO SCH (08:45)
[2018-01-19] MEDS: Diazepam 5 MG TAB PO SCH ×2 (08:46→20:24)
[2018-01-19] MEDS: DULoxetine 60 MG CAP PO SCH (08:46)
[2018-01-19] MEDS ORDERED: Enoxaparin Sodium 40 MG/0.4 ML SYRINGE SC SCH (09:00)
[2018-01-19] MEDS ORDERED: ESTRADIOL TOP SCH (09:00)
[2018-01-19] MEDS: Loperamide HCl 2 MG CAP PO PRN ×3 (11:25→21:17)
--- NOTE | 2018-01-19 16:30 | PDOC.PN ---
- Subjective Encounter Start Date: 01/19/18 Encounter Start Time: 16:29 Ms. Engle was seen today in follow-up of pancreatitis. - Objective MAR Reviewed: Yes Vital Signs & Weight: Vital Signs (12 hours) Temp Pulse Resp BP Pulse Ox 01/19/18 08:00 97.8 F 74 16 130/58 L 95 Weight Weight 239 lb 5.341 oz I&O: 01/18/18 01/19/18 01/20/18 06:59 06:59 06:59 Intake Total 2490 4850 Output Total 2900 2100 Balance -410 2750 Result Diagrams: 01/18/18 05:45 01/18/18 05:45 Phys Exam - Physical Examination HEENT: PERRLA Respiratory: no wheezing, no rales, no rhonchi, clear to auscultation bilateral Cardiovascular: RRR, no significant murmur, no rub Gastrointestinal: soft, non-tender, positive bowel sounds Musculoskeletal: no edema Dx/Plan (1) Acute pancreatitis Code(s): K85.90 - ACUTE PANCREATITIS WITHOUT NECROSIS OR INFECTION, UNSP Status: Acute (2) Choledocholithiasis Code(s): K80.50 - CALCULUS OF BILE DUCT W/O CHOLANGITIS OR CHOLECYST W/O OBST Status: Acute (3) Hypertension Code(s): I10 - ESSENTIAL (PRIMARY) HYPERTENSION Status: Chronic (4) Depression Code(s): F32.9 - MAJOR DEPRESSIVE DISORDER, SINGLE EPISODE, UNSPECIFIED Status : Chronic - Plan * Pancreatitis- improving- her diet has been advanced to a full liquid diet * HTN- blood pressure is stable * Depression- stable- continue current medications.
[2018-01-19] MEDS: Atorvastatin Calcium 20 MG TAB PO SCH (20:24)
[2018-01-19] MEDS: Melatonin 3 MG TAB PO PRN (20:28)
[2018-01-19] MEDS: Lorazepam 2 MG/ML VIAL SLOW IVP PRN (23:19)
[2018-01-20] MEDS: Sodium Chloride 0.9% 1,000 ML IV SCH ×4 (00:50→13:40)
--- NOTE | 2018-01-20 03:41 | PRG ---
DATE OF SERVICE: 01/19/2018 SUBJECTIVE: Ms. Mitzy Engle is a very pleasant 62-year-old female with post-ERCP panc reatitis. She had an ERCP stent removal on 01/15/2018 and had a cholangiogram. She had multiple sma ll stones and debris removed with a procedure. She was discharged home and she came back to the ER b ecause of abdominal pain, nausea, vomiting. She was found to have evidence of pancreatitis with a li pase of 14,000. She was n.p.o. until yesterday and she has a clear liquid diet. Her abdominal pain is markedly improved. She is not having abdominal pain. No nausea, no vomiting. She is complaining that she has multiple loose stools. She was sent for stool for C. difficile, ova and parasites, cul ture and also Clostridium difficile. All were reported negative. She had a dose of Imodium last nig ht. She is still have watery diarrhea. She is tolerating clear liquid diet abdominal pain. PHYSICAL EXAMINATION: GENERAL: Appears comfortable, afebrile. Pulse is 74, blood pressure 130/58. CARDIOVASCULAR SYSTEM AND LUNGS: Within normal limits. ABDOMEN: Soft to palpate. Abdomen is nondistended. Abdomen is nontender. She has active bowel ben nds. CLINICAL IMPRESSION: 1. Resolving pancreatitis. 2. Diarrhea, etiology unclear. She has negative stool studies including Clostridium difficile. RECOMMENDATIONS: Advance diet to full liquid diet. She does tolerate full liquid diet, advance diet to regular diet tomorrow and hopefully she can be discharged home tomorrow.
[2018-01-20 08:12] VITALS: BP 140/79; TEMP 99
[2018-01-20] MEDS: Diazepam 5 MG TAB PO SCH (08:24)
[2018-01-20] MEDS: Pregabalin 50 MG CAP PO SCH (08:24)
[2018-01-20] MEDS: DULoxetine 60 MG CAP PO SCH (08:24)
[2018-01-20] MEDS: Amlodipine 5 mg/Benazepril 20 mg CAP PO SCH (08:24)
[2018-01-20] MEDS: Loperamide HCl 2 MG CAP PO PRN (10:08)
[2018-01-20 10:26] LABS: #Eosinphils 0.2 thou/uL (0.0-0.7); #Lymphocytes 1.9 thou/uL (1.20-3.40); #Monocytes 0.5 thou/uL (0.11-0.59); #Neutrophils 3.2 thou/uL (1.40-6.50); %Basophils 0.7 % (0.0-1.0); %Eosinophils 2.7 % (0.0-10.0); %Lymphocytes 32.9 % (21.0-51.0); %Neutrophils 55.7 % (42.0-75.0); Hemoglobin 11.9 g/dL (12.0-16.0); Mean Corpuscular HGB CONC 35.8 g/dL (32.0-36.0); Mean Corpuscular Hemoglobin 28.9 pg (27.0-31.0); Mean Corpuscular Volume 80.6 fL (78.0-98.0); Mean Platelet Volume 11.8 fL (7.4-10.4); Platelet Count 77 thou/uL (130-400); RBC Distribution Width 13.3 % (11.5-14.5); Red Blood Cell (RBC) Count 4.11 mill/uL (4.20-5.40); White Blood Cell (WBC) Count 5.8 thou/uL (4.8-10.8)
[2018-01-20 11:02] LABS: Anion Gap 19 mmol/L (10-20); BUN (Urea Nitrogen) 4 mg/dL (9.8-20.1); Calc. Creatinine Clearance 119 mL/min (70-130); Calcium 8.7 mg/dL (7.8-10.44); Carbon Dioxide 15 mmol/L (23-31); Chloride 111 mmol/L (98-107); Estimated GFR-MDRD 69; Glucose 107 mg/dL (80-115); Potassium 3.7 mmol/L (3.5-5.1); Sodium 141 mmol/L (136-145)
--- NOTE | 2018-01-20 22:37 | PRG ---
DATE OF SERVICE: 01/20/2018 SUBJECTIVE: This is a 62-year-old female who had ERCP with papillotomy and a balloon sweep of the bile duct with removal of gallstones on 01/15/2018. She came here at the night of the w ith abdominal pain, nausea and vomiting and found to have acute pancreatitis. Her serum lipase was 1 4,000, which started coming down slowly. She was n.p.o. until Thursday and then she was started on nayeli ar liquid diet. She tolerated regularfull liquid diet yesterday. She has done well without any abdo harmeet pain, nausea or vomiting. She also has had multiple loose stools and the stool studies for C. difficile culture, ova and parasites and everything came back negative. She got a couple of doses of Imodium. From this morning, her diet was advanced to a regular diet. She has done well. She has n o abdominal pain, no nausea, no vomiting. She had only 1 stool today. PHYSICAL EXAMINATION: GENERAL: She appears comfortable. VITAL SIGNS: Stable. CARDIOVASCULAR: First and second heart sounds normal. LUNGS: Clear to auscultation. ABDOMEN: Soft. Abdomen is nontender. There is no organomegaly or masses. Bowel sounds present. ADMITTING DIAGNOSIS: Recurrent pancreatitis, resolved. RECOMMENDATION: 1. Discharge home. 2. Diet as tolerated. 3. Continue home medicines. 4. Come back to clinic in 4 weeks.
--- NOTE | 2018-01-21 00:41 | DIS ---
DATE OF ADMISSION: 01/16/2018 DATE OF DISCHARGE: 01/20/2018 CONSULTANTS: Dr. Burks of Gastroenterology. MEDICATIONS: Reconciled at discharge. NEW MEDICATIONS: None. DISCONTINUED MEDICATIONS: None. RESUMED MEDICATIONS: 1. Amlodipine/benazepril 5/20 mg 1 tablet daily. 2. Atorvastatin 20 mg at bedtime. 3. Azelastine 2 sprays each nostril twice daily. 4. Duloxetine 60 mg daily. 5. Valium 10 mg b.i.d. 6. Estradiol gel packet daily. 7. Supai 10/325 one tablet every 8 hours as needed. 8. Prevacid 30 mg once daily. 9. Potassium 10 mEq once daily. 10. Lyrica 50 mg daily. FINAL DIAGNOSES: 1. Recurrent pancreatitis. 2. Systemic inflammatory response syndrome, no evidence for infection. 3. Hypertension. 4. Mood disorder. 5. Dyslipidemia. 6. Chronic pain. 7. Allergic rhinitis. 8. Thrombocytopenia and anemia, mild. 9. Hiatal hernia. HISTORY OF PRESENT ILLNESS: Ms. Engle is a 62-year-old female with episode of pancreatitis in 11/2017 treated at another facility, undergoing ERCP as an outpatient with stent placement. She was readmitted with pancreatitis at [facility], discharged again after doing well. She was seen in the outpatient setting with Dr. Burks with stent removed on 2017, followed by return of pain soon after. Because of the return of pain, she was instructed to go to the emergency room, found to have a lipase of over 14,000 and admitted to this hospital. HOSPITAL COURSE: The patient was started on IV fluid hydration, and Gastroenterology was consulted. She was kept n.p.o. and her pain was treated. Due to SIRS criteria, she was started on antibiotics, which are discontinued at discharge. In discussion with Dr. Burks, no further antibiotics are warranted. She improved daily, her diet was advanced to full liquids yesterday , followed by regular meal today which she has tolerated well. She is voiding without difficulty, her lipase has trended down, and she is overall doing well. She has not required any pain medication today, and meets criteria for discharge to home. She will follow up with Dr. Burks in the outpatient setting. The patient was continued on her usual medications while here, with no adjustments made. PHYSICAL EXAMINATION: VITAL SIGNS: On day of discharge, blood pressure 140/79, temperature 99, pulse 86, respirations 18, saturations 97% on room air. GENERAL: Awake, alert, responsive, in no apparent distress, able to speak in regular sentences. LUNGS: Clear to auscultation bilateral. HEART: Normal S1, S2, regular rate and rhythm, no audible murmurs. ABDOMEN: Soft. Present bowel sounds. Nontender, nondistended. EXTREMITIES: Some 1+ pitting edema, upper and lower. GRIDER FINDINGS AND TEST RESULTS: 1. Renal panel today 141, 3.7, 111, 15, 4, 0.83, 107. 2. LFTs on 01/18, AST 12, ALT 8, total protein 5.7, albumin 3.3, alkaline phosphatase 104, total bilirubin 0.6. 3. Peak lipase 14,790, peak amylase 2002. 4. Triglycerides 131, cholesterol 107, LDL 52, HDL 29. 5. CBC 5.8, 11.9, 33.1, 77. 6. Urinalysis showed a specific gravity 1.023, trace blood, 4-6 squamous cells. 7. Rapid parasite screen on 01/18. Negative for Giardia and cryptosporidium. 8. Clostridium difficile on 01/18, negative. 9. Campylobacter and Shiga toxin both negative and stool culture normal keanu, all performed on 01/18. CT abdomen and pelvis on 01/15/2018. Peripancreatic inflammatory change compatible with pancreatitis, postop cholecystectomy changes and hiatal hernia. DIET: Heart healthy. ACTIVITY: As tolerated. FOLLOWUP: 1. With Dr. Burks within the next 2 weeks to reevaluate this hospitalization and any other GI needs. 2. Follow up with the primary care provider within a week to reevaluate the platelet level and determine the etiology of thrombocytopenia, as well as to address any other health needs. DISCHARGE DISPOSITION: Home. CODE STATUS: FULL. I reviewed with patient this hospitalization, the importance of followup and seek care, precautions. She demonstrates understanding. Total time coordinating discharge is 30 minutes. HECTOR
== END 2018-01-20 15:20 | disposition home or self-care (01) | DRG 439 ==
LOC: ERS 16:21 → ERHOLD 01-16 00:56 → ONC 01-16 03:21
PROVIDERS: ADMIT Internal Medicine; ATTEND Internal Medicine
DX: K85.90 Acute pancreatitis without necrosis or infection, unspecified (principal); K91.89 Other postprocedural complications and disorders of digestive system; I10 Essential (primary) hypertension; E78.5 Hyperlipidemia, unspecified; G89.29 Other chronic pain; J30.9 Allergic rhinitis, unspecified; D69.6 Thrombocytopenia, unspecified; D64.9 Anemia, unspecified; K44.9 Diaphragmatic hernia without obstruction or gangrene; R19.7 Diarrhea, unspecified; K80.50 Calculus of bile duct without cholangitis or cholecystitis without obstruction; F32.9 Major depressive disorder, single episode, unspecified; Z85.828 Personal history of other malignant neoplasm of skin
CPT/HCPCS: 36415; 74177; 74330; 80048; 80053; 80061; 81003; 81015; 82150; 82248; 83690; 83735; 84100; 85025; 87045; 87046; 87324; 87328; 87329; 87449; 87899; 96361; 96374; 96375; A4216; J1650; J1956; J2001; J2060; J2270; J2405; J2550; J2704; J3010; Q9961

== ENCOUNTER 2018-08-18 09:07 | Outpatient (CLI) | payer MEDICARE, BC | END 2018-08-18 09:08 | disposition home or self-care (01) | LOC: BICMAMMO 09:07 | PROVIDERS: ATTEND Physician Assistant | DX: Z12.31 Encounter for screening mammogram for malignant neoplasm of breast (principal); R92.1 Mammographic calcification found on diagnostic imaging of breast; Z85.828 Personal history of other malignant neoplasm of skin | CPT/HCPCS: 77063; 77067 ==

== ENCOUNTER 2018-09-21 16:38 | Emergency (ER) | payer MEDICARE, BC ==
[2018-09-21] MEDS ORDERED: Ketorolac Tromethamine 30 MG/ML VIAL ONE (18:17)
== END 2018-09-21 18:20 | disposition home or self-care (01) ==
LOC: SCSER 16:38
DX: G89.29 Other chronic pain (principal); M54.2 Cervicalgia; M26.621 Arthralgia of right temporomandibular joint; I10 Essential (primary) hypertension
CPT/HCPCS: 96372; J1885

== ENCOUNTER 2018-12-16 09:38 | Outpatient (CLI) | payer MEDICARE, BC ==
--- NOTE | 2018-12-16 10:00 | RAD ---
EXAM: 5 views of the cervical spine HISTORY: Neck pain COMPARISON: None FINDINGS: AP, lateral, flexion/extension, and open mouth odontoid views of the cervical spine shows n ormal height and alignment of the vertebral bodies and intervertebral discs without fracture or subluxation. The patient is status post anterior fusion of C5 and C6 without perihardware lucency. A disc spacer is seen in the intervening disc space. No prevertebral soft tissue swelling is seen. Alignment is unchanged with flexion and extension. IMPRESSION: Postsurgical changes of cervical spine without evidence of complication.
== END 2018-12-16 09:39 | disposition home or self-care (01) ==
LOC: TBSIIMAG 09:38
PROVIDERS: ATTEND Neurological Surgery
DX: M54.12 Radiculopathy, cervical region (principal); Z98.890 Other specified postprocedural states
CPT/HCPCS: 72050

== ENCOUNTER 2019-08-25 12:56 | Outpatient (CLI) | payer MEDICARE, BC ==
--- NOTE | 2019-08-25 16:23 | MMO ---
Bilateral MAMMO Bilat Screen [facility]. CLINICAL HISTORY: Patient is 64 years old and is seen for screening. The patient has no family history of breast cancer. VIEWS: The views performed were: bilateral craniocaudal with tomosynthesis and bilateral mediolateral oblique with tomosynthesis. FILMS COMPARED: The present examination has been compared to prior imaging studies performed at [facility] on 06/06/2015, 06/03/2016, 08/17/2017 and 08/18/2018. This study has been interpreted with the assistance of computer-aided detection. MAMMOGRAM FINDINGS: The breasts are heterogeneously dense, which could obscure a lesion on mammography. Benign calcifications are noted bilaterally. There are no suspicious masses, suspicious calcifications, or new areas of architectural distortion. IMPRESSION: THERE IS NO MAMMOGRAPHIC EVIDENCE OF MALIGNANCY. A ROUTINE FOLLOW-UP MAMMOGRAM IN 1 YEAR IS RECOMMENDED. THE RESULTS OF THIS EXAM WERE SENT TO THE PATIENT. ACR BI-RADS Category 2 - Benign finding MAMMOGRAPHY NOTE: 1. A negative mammogram report should not delay a biopsy if a dominant of clinically suspicious mass is present. 2. Approximately 10% to 15% of breast cancers are not detected by mammography. 3. Adenosis and dense breasts may obscure an underlying neoplasm. Reported by: QI ADRIAN MD Electonically Signed: [id number]
== END 2019-08-25 12:57 | disposition home or self-care (01) ==
LOC: BICMAMMO 12:56
PROVIDERS: ATTEND Physician Assistant
DX: Z12.31 Encounter for screening mammogram for malignant neoplasm of breast (principal)
CPT/HCPCS: 77063; 77067

== ENCOUNTER 2021-08-27 07:55 | Outpatient (CLI) | payer MEDICARE, BC | END 2021-08-27 07:56 | disposition home or self-care (01) | LOC: BICMAMMO 07:55 | PROVIDERS: ATTEND Physician Assistant | DX: Z12.31 Encounter for screening mammogram for malignant neoplasm of breast (principal) | CPT/HCPCS: 77063; 77067 ==